=== PATIENT | female | born 1955 | race Caucasian/White ===

== ENCOUNTER → 2021-01-31 | Outpatient (CLI) | payer BC ==
[2016-02-24 08:54] VITALS: BP 109/80
[~2021-01-31] MED LIST: ASCO100019 PO; CHOL2000 PO; COLE1TAB PO; GADOTERATE 7.5 MMOL/15ML VIAL. IVP ONE; LACT1CAP8 PO; LISI1TAB39 PO; OMEG100021 PO; SIMV40TA18 PO; SUMA100T4 PO; TURM500C7 PO; VITA1CAP PO
--- NOTE | 2021-01-31 14:48 | RAD ---
MRI BRAIN WO+W Date: 01/31/2021 10:59 AM Indication: mets check. ANDENOCARCINOMA OF LUNGS Comparison: None. Technique: Multiplanar multisequence MRI of the brain was performed with and without intravenous cont rast using the standard protocol. 15 cc Clariscan contrast was administered intravenously during the exam. Findings: No acute infarct. No acute or chronic hemorrhage. The ventricles are normal in size and configuration without hydrocephalus. Minimal scattered FLAIR hyperintensities in the subcortical and periventricul ar deep white matter, a nonspecific finding, appropriate for patient age. 8 mm extra-axial enhancing lesion along the floor of the right middle cranial fossa. The scalp and calvarium are normal. The pituitary and sella are normal. No Chiari malformation. The v isualized upper cervical spine is normal. The visualized orbits and globes are normal. The visualized paranasal sinuses are clear. The mastoid air cells are clear. Normal flow voids within the vertebral, basilar, and internal carotid arteries indicating patency. IMPRESSION: Small 8 mm extra-axial enhancing lesion along the floor of the right middle cranial fossa is probably a meningioma, however given history of malignancy a three-month follow-up contrast enhanced MRI is r ecommended to assess stability. No other enhancing lesions are seen. Electronically signed by: Beck Moreno MD (01/31/2021 2:45 PM) [id number]
== END ==
LOC: MRI 11:09
PROVIDERS: ATTEND Internal Medicine Hematology & Oncology
DX: C34.92 Malignant neoplasm of unspecified part of left bronchus or lung (principal); G93.89 Other specified disorders of brain
CPT/HCPCS: 70553; A9575